=== PATIENT | female | born 1990 | race Caucasian/White ===

== ENCOUNTER → 2022-08-23 | Day surgery (SDC) | payer OTHER ==
[2022-08-22 11:52] VITALS: BMI 35.7
[~2022-08-23] MED LIST: LACTATED RINGERS 1,000 ML IV SCH; PROPOFOL 10 MG/ML 20 ML VIAL IV ONE
[2022-08-23 12:30] VITALS: TEMP 97
--- NOTE | 2022-08-23 12:55 | P.GSHP ---
History of Present Illness H&P Date: 08/23/22 Chief Complaint: GI bleed This a 30-year-old female presents today for colonoscopy. She's had issues with GI bleed. Past Medical History Past Medical History: Hearing Disorder / Deafness, Thyroid Disorder Additional Past Medical History / Comment(s): Rectal bleeding on and off X1 year. Hearing loss in right ear. Occasional Migraines. History of Any Multi-Drug Resistant Organisms: None Reported Past Surgical History: Adenoidectomy, Ear Surgery, Tonsillectomy Past Anesthesia/Blood Transfusion Reactions: No Reported Reaction, Motion Sickness Additional Past Anesthesia/Blood Transfusion Reaction / Comment(s): Slow to wake up. Past Psychological History: No Psychological Hx Reported Smoking Status: Never smoker Past Alcohol Use History: Rare Past Drug Use History: None Reported - Past Family History Mother Family Medical History: No Reported History Medications and Allergies Home Medications Medication Instructions Recorded Confirmed Type Levothyroxine Sodium [Synthroid] 25 mcg PO QAM 08/22/22 08/23/22 History Allergies Allergy/AdvReac Type Severity Reaction Status Date / Time No Known Allergies Allergy Verified 08/23/22 12:30 Surgical - Exam Vital Signs Temp Pulse Resp BP Pulse Ox 97 F L 64 16 133/71 99 08/23/22 12:13 08/23/22 12:13 08/23/22 12:13 08/23/22 12:13 08/23/22 12:13 - General well developed, well nourished, no distress - Eyes PERRL - ENT normal pinna - Neck no masses - Respiratory normal expansion - Cardiovascular Rhythm: regular - Abdomen Abdomen: soft, non tender Assessment and Plan Assessment: GI bleed. We'll perform colonoscopy
--- NOTE | 2022-08-23 13:14 | P.OP ---
Date of Procedure: 08/23/22 Preoperative Diagnosis: GI bleed Postoperative Diagnosis: Internal hemorrhoids Procedure(s) Performed: Colonoscopy Anesthesia: MAC Surgeon: Slade Cunningham Pathology: none sent Condition: stable Disposition: PACU Description of Procedure: The patient's placed on the endoscopy table in the lateral position. She received IV sedation. Digital rectal exam was performed. This revealed internal hemorrhoids. The flexible colonoscope was then placed in patient's anus and passed throughout the entire colon. The ileocecal valve was visualized. The cecum, ascending and transverse colon appeared normal. The descending and sigmoid colon appeared normal. The scope was brought back the rectum and this appeared normal. Scope was withdrawn through the anus and large internal hemorrhoids could be seen. There was no active bleeding. His present the patient a previous rectal bleeding from her internal hemorrhoids.
[2022-08-23 13:32] VITALS: RESP 16
[2022-08-23 13:51] VITALS: BP 109/62; PULSE 71
== END | disposition home or self-care (01) ==
LOC: ORWHC2ENDO 10:41
PROVIDERS: ATTEND Surgery
DX: K64.8 Other hemorrhoids (principal); E03.9 Hypothyroidism, unspecified; Z87.19 Personal history of other diseases of the digestive system; Z86.69 Personal history of other diseases of the nervous system and sense organs; Z90.89 Acquired absence of other organs; Z98.890 Other specified postprocedural states; Z79.890 Hormone replacement therapy
CPT/HCPCS: 81025; 45378; J2704